=== PATIENT | male | born 1970 | race Caucasian/White ===

== ENCOUNTER 2024-07-11 11:59 | Inpatient (IN) | payer OTHER, MEDICAID, SELFPAY ==
[2024-07-11] VITALS (15 sets, daily range): BP systolic 79–178; BP diastolic 51–95; PULSE 92–127; RESP 12–20; TEMP 36.9–37.1; O2SAT 88–99; BMI 25.0
--- NOTE | 2024-07-11 12:24 | ECG_ITS ---
[facility]: 2024-[facility]11 Pat Name: Black Mayes Department: Room: Gender: Male Cripple Chaser: : 1970 Requested By: Jayy Ospina Order Number: [id number] Denisse MD: Damian Stevens M.D. Measurements Intervals [place] Rate: 109 P: 0 [place]: 0 QRS: 89 QRSD: 106 T: -67 QT: 386 QTc: 520 Interpretive Statements ATRIAL FLUTTER/TACHYCARDIA WITH RAPID VENTRICULAR RESPONSE MODERATE INTRAVENTRICULAR CONDUCTION DELAY [105+ ms QRS DURATION, 80+ ms Q/S IN V1/V2, NO Q AND 60+ ms R IN I/aVL/V5/V6] ST DEVIATION AND MARKED T-WAVE ABNORMALITY, CONSIDER LATERAL ISCHEMIA [-0.5+ mV T-WAVE IN I/aVL/V5/V6] ST DEVIATION AND MODERATE T-WAVE ABNORMALITY, CONSIDER INFERIOR ISCHEMIA [-0.1+ mV T-WAVE IN II/aVF] No previous ECG available for comparison Electronically Signed On 07-12-2024 18:16:25 CDT by Damian Stevens M.D. [email or web address] [id number]
--- NOTE | 2024-07-11 12:39 | XR_ITS ---
WS: [id number] XR chest 1V portable [id number] REASON FOR EXAM: syncope FINDINGS: Mild tortuosity of the thoracic aorta. Normal heart size. Calcified granulomas disease in both hemithoraces. Reticular and patchy lung opacities in the left lower lung. No other pulmonary parenchymal abnormality. No pleural abnormality. Mild to moderate degenerative spondylosis in the thoracic spine. XR/XR chest 1V portable [id number] IMPRESSION: Left lower lung opacities. No previous examination for comparison. Findings cou ld represent acute/subacute pneumonitis.
--- NOTE | 2024-07-11 12:52 | CT_ITS ---
WS: [id number] CT HEAD NONCONTRAST HISTORY: sz and head trauma TECHNIQUE: Contiguous axial imaging performed through the brain. Bone and soft tissue windows. Sagittal and coronal reformats reviewed. All CT scans at [facility] use at least one of these dose optimization techniques: automated exposure control; mA and/or kV adjustment per patient size (includes targeted exams where dose is matched to clinical indication); or iterative reconstruction. DLP: 1082.08 mGy.cm COMPARISON: None available. No acute intracranial hemorrhage, midline shift or mass effect. Mild cerebral and cerebellar atrophy and mild small vessel disease. No acute infarct. No hemorrhage. Ventricles: Normal size with no hydrocephalus. No inferior displacement of the cerebellar tonsils. Paranasal sinuses: Small mucous retention cyst or polyp in the RIGHT maxillary sinus. Mastoid air cells: Well pneumatized. Calvarium and scalp: Skull is intact with no soft tissue edema or swelling. CT/CT head wo con* [id number] IMPRESSION: 1. No acute intracranial hemorrhage or edema. 2. Mild atrophy and small vessel disease.
[2024-07-11 12:53] LABS: Basophils % 0.6 %; Eosinophils % 0.2 %; Hematocrit 30.7 % (37-53); Lymphocytes % 22.2 %; Mean Corpuscular HGB Conc 33.6 g/dL (30-55); Mean Corpuscular Hemoglobin 31.3 pg (27-33); Mean Corpuscular Volume 93.3 fl (82-101); Mean Platelet Volume 10.4 fL (7.4-10.4); Monocytes # 0.5 10^3/uL (0.2-0.9); Monocytes % 10.9 %; Neutrophils # 3.05 10^3/uL (1.8-7.7); Neutrophils % 65.2 %; Nucleated Red Blood Cells % 0 %; Platelet Count 84 10^3/cmm (157-399); Red Blood Count 3.29 10^6/uL (3.85-5.65); Red Cell Distribution Width 15.2 % (12.1-15.1); White Blood Count 4.68 10^3/uL (3.29-11.43)
--- NOTE | 2024-07-11 12:53 | ED_ITS ---
HPI - Syncope 2 General: Chief Complaint: Syncope Stated Complaint: fainting Time Seen by Provider: 07/11/24 12:38 Source: patient and family Mode of arrival: ambulatory Limitations: no limitations History of Present Illness: This patient presents to the emergency department because of concerns about possible passing out episodes and short duration seizures after these events. The initial 1 he relates this morning occurred approximately 2 weeks ago. It was witnessed by family members. He apparently felt lightheaded and sat down in a chair and was noted to be reaching for a cup and then was observed to pass out and become unresponsive. Family members noted that his eyes seem to be darting [id number]. There was no loss of bowel or bladder control noted. They state that after a few seconds he awoken and was back to his normal self. There was no concomitant chest pain or other associated symptoms. He has had episodes where he is felt lightheaded and he would feel like he is going to fall out and he would sit down. He had another episode last night at the toilet where he had a syncopal episode and fell striking his head on the toilet. He has had no recent illness to include nausea vomiting diarrhea fevers chills etc. 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 As a consequence he has increased his alcohol consumption because he has been at home and is drinking fairly heavily most days. He has normal lifestyle included alcohol use on a daily basis but not during the day just after work. He also smokes tobacco and occasionally uses marijuana. No other street drug use. No history of seizure disorder. No known history of cardiovascular disease or arrhythmia. He had a prior ACL repair but no other surgeries. Witnessed: Yes - by Other Context: at rest and after urination Associated symptoms: Reports lightheadedness; Deny abdominal pain, chest pain, fever(s), headache(s) or nausea Related Data Home Medications ?Medication ?Instructions ?Recorded ?Confirmed ketorolac 0.5 % eye drops See Rx Instructions .Route . COMPLEX 07/11/24 07/11/24 moxifloxacin 0.5 % eye drops See Rx Instructions .Rout e .COMPLEX 07/11/24 07/11/24 prednisolone acetate 1 % eye See Rx Instructions .Rout e .COMPLEX 07/11/24 07/11/24 drops,suspension Allergies Allergy/AdvReac Type Severity Reaction Status Date / Time Penicillins Allergy ALGY-Anaphy Verified 07/11/24 12:23 laxis Review of Systems 2 Const: Denies: fever(s) or chills Eyes: Denies: change in vision ENMT: Denies: throat pain, odynophagia, nasal discharge or nasal congestion Card: Reports: lightheadedness, syncope and pre-syncope; Denies: chest pain, palpitations or irregular heart rhythm Resp: Denies: dyspnea, productive cough, non-productive cough or wheezing GI: Denies: abdominal pain, nausea, vomiting, hematochezia or melena : Denies: flank pain, difficulty urinating or dysuria Musc: Denies: neck pain, back pain, extremity pain or extremity swelling Neuro: Reports: dizziness and seizure-like activity; Denies: headache(s), numbness in extremities or weakness in extremities Psych: Denies: anxiety, depression or mood swings Endo: Denies: polyuria, polydipsia or tired all the time Physical Exam 2 Narrative: EXAM NARRATIVE: He is alert but appears a bit anxious. He answers questions in a goal-directed fashion and is cooperative. Const: COMMON NORMALS: no acute distress, average body habitus, patient oriented x3, healthy appearing and alert GENERAL APPEARANCE: cooperative, comfortable and anxious HENMT: COMMON NORMALS: moist oral mucous membranes and oropharynx normal H EAD & SCALP: abrasion; no palpable skull fracture HEAD IMAGES: 1. Abrasion FACE & SINUS: face symmetric Eye: COMMON NORMALS: Equal, round and reactive pupils present, EOMs intact bilaterally, conjunctivae normal and no scleral icterus CONJUNCTIVA: Yes conjunctivae normal PUPIL: Yes Equal, round and reactive pupils present Neck/C-Spine: CERVICAL SPINE: Yes cervical ROM normal, No Cervical spine tenderness, No step off deformity, No Paracervical muscle tenderness, No Paracervical spasm and No Trapezius muscle tenderness OTHER: He is able to actively range his neck in a normal fashion 45 degrees left and right rotation, forward bend and extension 15 degrees. No midline tenderness or step-off. Chest: COMMONS NORMALS: normal inspection of the chest and normal palpation of entire chest wall Resp: COMMON NORMALS: normal respiratory effort, No retractions, No use of accessory muscles and clear to auscultation bilaterally AUSCULTATION: clear to auscultation bilaterally Cardio: COMMON NORMALS: regular rate, No murmurs present (Cardio) and Peripheral pulses 2+ throughout RATE: regular rate PERIPHERAL PULSES: P eripheral pulses 2+ throughout GI: COMMON NORMALS: Normal to inspection, nondistended, normoactive bowel sounds present, Soft to palpation and non-tender PALPATION: Yes Soft to palpation Back/Pelvis: COMMON NORMALS: thoracic and lumbar spine normal to inspection, no thoracic nor lumbar tenderness and thoraco-lumbar ROM normal Extremity: COMMON NORMALS: normal to inspection, full ROM, capillary refill normal, no calf tenderness and no pedal edema Neuro: COMMON NORMALS: patient oriented x3, moves all extremities, no focal motor deficits and no sensory deficits noted SENSORIUM/ORIENTATION: Yes alert Psych: COMMON NORMALS: mental status grossly normal Skin: COMMON NORMALS: no rashes or lesions noted, turgor normal and no jaundice GENERAL SKIN EXAM: no rashes or lesions noted and turgor normal T RAUMA: abrasion Course 2 Reevaluation(s): Reevaluation #1: Patient remains in a rapid ventricular response in the 110 range. His orthostatics are also noted. We are actively orally and IV replacing his magnesium and potassium however because of the significant hypokalemia it is felt best served that he be placed in observation status to complete that process. I discussed this with patient and spouse who voiced understanding. Time: 13:48 Consultations: Consultation #1: Discussed with Dr. Herr who put him in the CSU to continue his repletion of his electrolytes and reevaluation of his rhythm etc. Time: 14:21 Vital Signs: Vital signs: Vital Signs Temperature 98.8 F 07/11/24 12:20 Pulse Rate 108 H 07/11/24 13:48 Respiratory Rate 18 07/11/24 13:48 Blood Pressure 141/84 07/11/24 13:48 Pulse Oximetry 93 07/11/24 13:48 Oxygen Delivery Me thod Room Air 07/11/24 12:20 MDM - Syncope Medical Decision Making This patient presents as noted in the history of present illness. He has history suggest that he may be having presyncope and syncope likely related to a occult arrhythmia however certainly other factors may be at play. Will proceed with workup to include blood count chemistries CT of his head due to his recent fall with closed head trauma cardiac monitoring etc. monitoring reveals a tachycardia which is indeterminate as to etiology potentially atrial flutter versus a other supraventricular rhythm. Has have ST T wave flattening in the lateral leads. Laboratories did reveal that he had a profound hyper Po kalemia of 1.9 mEq/L as well as a concomitant hypomagnesemia. His CT scan revealed no evidence of intracranial bleed or mass effect etc. His chest x-ray was unremarkable for any acute findings. His orthostatic vital signs also noted that he had low blood pressures with postural changes. His presentation is likely related to concomitant systemic and cardiovascular effects of his electrolyte disturbance. This is likely has been brought on by his increased alcohol use as he has no other issues at play to cause electrolyte disturbances to include vomiting diarrhea, diuretic use etc. His initial troponin is reassuring making any concomitant cardiac ischemia less likely at this time. We will begin aggressive oral and IV correction of his electrolyte disturbance but he will need to be placed in observation status in order to allow complete correction and establishment of no ongoing arrhythmias or other orthostatic changes. Lab Data I reviewed the patient's lab results. 07/11/24 12:43 07/11/24 12:43 Radiology Impressions Chest X-Ray 07/11/24 12:39 IMPRESSION: Left lower lung opacities. No previous examination for comparison. Findings could represent acute/subacute pneumonitis. Head CT 07/11/24 12:52 IMPRESSION: 1. No acute intracranial hemorrhage or edema. 2. Mild atrophy and small vessel disease. Laboratory Results WBC 4.68 10^3/uL (3.29-11.43) 07/11/24 12:43 RBC 3.29 10^6/uL (3.85-5.65) L 07/11/24 12:43 Hgb 10.30 g/dL (11.27-16.99) L 07/11/24 12:43 Hct 30.7 % (37-53) L 07/11/24 12:43 MCV 93.3 fl (82-101) 07/11/24 12:43 MCH 31.3 pg (27-33) 07/11/24 12:43 MCHC 33.6 g/dL (30-55) 07/11/24 12:43 RDW 15.2 % (12.1-15.1) H 07/11/24 12:43 Plt Count 84 10^3/cmm (157-399) L 07/11/24 12:43 MPV 10.4 fL (7.4-10.4) 07/11/24 12:43 Neut % (Auto) 65.2 % 07/11/24 12:43 Lymph % (Auto) 22.2 % 07/11/24 12:43 [place] % (Auto) 10.9 % 07/11/24 12:43 Eos % (Auto) 0.2 % 07/11/24 12:43 Baso % (Auto) 0.6 % 07/11/24 12:43 Neut # (Auto) 3.05 10^3/uL (1.8-7.7) 07/11/24 12:43 Lymph # (Auto) 1.0 10^3/uL (0.8-4.8) 07/11/24 12:43 [place] # (Auto) 0.5 10^3/uL (0.2-0.9) 07/11/24 12:43 Eos # (Auto) 0.0 10^3/uL (0.0-0.8) 07/11/24 12:43 Baso # (Auto) 0.0 10^3/uL (0.0-0.1) 07/11/24 12:43 Nucleated RBC % (auto) 0 % 07/11/24 12:43 Nucleated RBCs # 0.0 /100WBC 07/11/24 12:43 Sodium 139 mmol/L (136-145) 07/11/24 12:43 Potassium 1.9 mmol/L (3.5-5.1) L* 07/11/24 12:43 Chloride 80 mmol/L (98-107) L 07/11/24 12:43 Carbon Dioxide 40 mmol/L (22-29) H 07/11/24 12:43 Anion Gap 20.9 (5-19) H 07/11/24 12:43 BUN 5 mg/dL (6-20) L 07/11/24 12:43 Creatinine 0.5 mg/dL (0.7-1.2) L 07/11/24 12:43 GFR Calculation 175.3 mL/min (90-130) H 07/11/24 12:43 Glucose 138 mg/dL (65-115) H 07/11/24 12:43 Calculated Osmolality 287 mOsm/kg (285-295) 07/11/24 12:43 Calcium 8.7 mg/dL (8.5-10.5) 07/11/24 12:43 Magnesium 1.1 mg/dL (1.7-2.3) L 07/11/24 12:43 Total Bilirubin 1.3 mg/dL (0.15-1.2) H 07/11/24 12:43 AST 65 U/L (0-40) H 07/11/24 12:43 ALT 17 U/L (0-41) 07/11/24 12:43 Alkaline Phosphatase 104 U/L (40-130) 07/11/24 12:43 Troponin T Baseline 8 ng/L (0-15) 07/11/24 12:43 Total Protein 7.6 g/dL (6.6-8.7) 07/11/24 12:43 Albumin 4.1 g/dL (3.5-5.2) 07/11/24 12:43 Globulin 3.5 g/dL (1.3-4.6) 07/11/24 12:43 Ethyl Alcohol 135 mg/dL (0-10) H 07/11/24 12:43 All radiology interpretation(s) finalized by discharge EKG Data EKG 1: I personally reviewed and interpreted this EKG as follows: Interpretation: Contemporaneous review of resting EKG reveals a ventricular rate of 109 bpm. No identifiable P wave is noted. QRS duration is normal corrected QT interval is normal he has a leftward axis. Underlying rhythm suggestive of atrial flutter with a rapid ventricular response. EKG 2: I personally reviewed and interpreted this EKG as follows: Interpretation: Second electrocardiogram this visit reveals a ventricular to 106 bpm. Rhythm is indeterminate whether this represents sinus tachycardia 106 bpm or atrial flutter/fibrillation with a rapid ventricular response. He still has ST depressions noted suggestive of possible ischemic changes versus electrolyte disturbance. No other acute changes from prior tracing this visit. Discharge Plan Discharge Patient Disposition: Placed in Observation Clinical Impression: Hypokalemia, Hypomagnesemia, Syncope, Alcohol use disorder Coding Level of Care Code ED Hospitalist Medical Director for Hilda Spears
[2024-07-11 13:15] LABS: Alanine Aminotransferase 17 U/L (0-41); Albumin Level 4.1 g/dL (3.5-5.2); Alkaline Phosphatase 104 U/L (40-130); Anion Gap 20.9 (5-19); Aspartate Amino Transferase 65 U/L (0-40); Blood Urea Nitrogen 5 mg/dL (6-20); Calcium 8.7 mg/dL (8.5-10.5); Carbon Dioxide 40 mmol/L (22-29); Chloride 80 mmol/L (98-107); Creatinine Clr Calc Pharmacy 203.7437; Globulin 3.5 g/dL (1.3-4.6); Glomerular Filtration Rate 175.3 mL/min (90-130); Glucose 138 mg/dL (65-115); Magnesium 1.1 mg/dL (1.7-2.3); Osmolality Calculated 287 mOsm/kg (285-295); Sodium 139 mmol/L (136-145); Total Bilirubin 1.3 mg/dL (0.15-1.2); Total Protein 7.6 g/dL (6.6-8.7); Troponin(5th) Baseline 8 ng/L (0-15)
[2024-07-11 13:17] LABS: Alcohol Level 135 mg/dL (0-10)
[2024-07-11 13:25] LABS: Potassium 1.9 mmol/L (3.5-5.1)
[2024-07-11] MEDS: potassium bicarb 25 mEq Tablet 50 MEQ PO (13:35)
[2024-07-11] MEDS: lactated ringers 1,000 ML 999 ML IV (13:35)
[2024-07-11] MEDS: lidocaine 1% 5 ML in potassium chloride premix 100 ML 52.5 ML IV ×2 (13:46→17:17)
[2024-07-11] MEDS: magnesium sulfate premix 2 GM/50 ML PIGGYBACK IV (14:16)
--- NOTE | 2024-07-11 14:24 | US_ITS ---
WS: [id number] RIGHT UPPER QUADRANT ULTRASOUND HISTORY: assess for cirrhosis COMPARISON: None available. Liver: 18.2 cm in length. Top normal liver to slightly enlarged. Coarse echotexture throughout. The surface of the liver is slightly nodular and irregular. No intrahepatic mass. Portal Vein: Normal hepatopetal flow with monophasic waveform. Gallbladder: Normally distended gallbladder with no stones or wall thickening. CBD: 0.3 cm Pancreas: Not visualized. Right kidney: 11.4 cm in length. Normal size and echogenicity. No hydronephrosis or mass. Aorta and IVC: Unremarkable abdominal aorta and IVC. No ascites. US/US liver [id number] IMPRESSION: 1. Hepatomegaly and changes of early cirrhosis by ultrasound. 2. No hepatic mass. 3. Negative gallbladder.
--- NOTE | 2024-07-11 14:40 | ECG_ITS ---
[facility] Test Date: 2024-07-11 Pat Name: Black Mayes Department: Room: Gender: Male Dynamicist: : 1970 Requested By: Marco A Faulkner Order Number: [id number] Denisse MD: CYNTHIA LUNA Measurements Intervals [place] Rate: 106 P: 83 [place]: 185 QRS: 87 QRSD: 90 T: -86 QT: 348 QTc: 463 Interpretive Statements SINUS TACHYCARDIA WITH OCCASIONAL VENTRICULAR PREMATURE COMPLEXES ST DEVIATION AND MODERATE T-WAVE ABNORMALITY, CONSIDER LATERAL ISCHEMIA [-0.1+ mV T-WAVE IN I/aVL/V5/V6] ST DEVIATION AND MODERATE T-WAVE ABNORMALITY, CONSIDER INFERIOR ISCHEMIA [-0.1+ mV T-WAVE IN II/aVF] INTERPRETATION BASED ON A DEFAULT AGE OF 40 YEARS Compared to ECG 07/11/2024 12:36:04 Ventricular premature complex(es) now present Atrial flutter no longer present Intraventricular conduction delay no longer present T-wave abnormality still present Possible ischemia still present Electronically Signed On 07-13-2024 22:04:24 CDT by CYNTHIA LUNA [id number]
[2024-07-11] MEDS: thiamine 100 mg/mL 2mL SDV IM (14:46)
[2024-07-11 14:54] LABS: INR 0.92 (0.8-1.2)
[2024-07-11 14:57] LABS: Troponin 5 2HR 36.53 ng/L (0-15)
[2024-07-11 15:13] LABS: Iron 103 ug/dL (59-158); Lipase 92 U/L (13-60); Percent Saturation 44.5 % (20-50); Total Iron Binding Capacity 231 mcg/dl; Unsaturated Iron Binding 128 ug/dL (112-347)
[2024-07-11 15:16] LABS: Troponin 5 2HR Delta 28.53 ABS# (0-10)
[2024-07-11 15:17] LABS: Potassium 2.3 mmol/L (3.5-5.1)
[2024-07-11 15:20] LABS: Folate Level 3.9 ng/mL (4.5-32.2)
[2024-07-11 15:29] LABS: Ferritin 1098 ng/mL (30-400)
[2024-07-11 15:30] LABS: Vitamin B12 632 pg/mL (232-1245)
--- NOTE | 2024-07-11 16:00 | P.HP_ITS ---
Providers/Chief Complaint 2 Admitting Physician: Chela Herr MD Chief Complaint: fainting History of Present Illness Black Mayes is a 53 year old male with no known medical comorbidities who is presenting to the hospital with one week of recurrent syncopal episodes at home. He states he was in his usual state of health until 2 weeks ago when he had cataract surgery. Since then he has been having intermittent episodes of dizziness, muscle weakness and has passed out twice at home, most recently yesterday. His was able to awaken him with a strenal rub . no tongue bite, eye rolling or incontinence noted. He recalls feeling dizzy before passing out. Today he was unable to walk so came to the ER. He was noted to have severe hypokalemia of 1.9. he denies any nausea or vomiting. HE has not been diagnosed with any kidney problems in the past. he has never sought preventative care and does not see a physician. Review of Systems 2 General: Reports: 10 or more systems reviewed and unremarkable except in HPI and below Const: Denies: fever(s), chills or body aches Eyes: Denies: change in vision, blurry vision or photophobia ENMT: Reports: hoarseness; Denies: throat pain, enlarged tonsils, odynophagia or nasal congestion Card: Denies: chest pain, palpitations, irregular heart rhythm, edema, swelling of feet/ankles, lightheadedness, pre-syncope, dyspnea on exertion or orthopnea Resp: Denies: dyspnea, productive cough, non-productive cough, wheezing, stridor, pain on inspiration, change in phlegm color, hemoptysis or chest congestion GI: Denies: abdominal pain, nausea, vomiting, hematemesis, coffee ground emesis, dysphagia, heartburn, diarrhea, constipation, GI cramping, change in stool character, hematochezia or melena : Denies: flank pain, dysuria, urinary frequency, urinary urgency, urinary hesitancy or hematuria Musc: Denies: neck pain, back pain, extremity pain, joint swelling, joint warmth or deformity Neuro: Denies: headache(s), numbness in extremities, weakness in extremities, sensory changes, difficulty walking, frequent falls, dizziness, vertigo, behavioral changes, Slurred speech present or seizure-like activity Psych: Denies: anxiety, depression, suicidal ideation or homicidal ideation Endo: Denies: polyuria, polydipsia, tired all the time, cold intolerance or hot flashes Joaquin/Lymph: Denies: easy bruising or easy bleeding Medications/Allergies Home Medications ?Medication ?Instructions ?Recorded ?Confirmed ?Last Taken ?Type ketorolac 0.5 % eye drops See Rx Instructions .Route . COMPLEX 07/11/24 07/11/24 Unknown History moxifloxacin 0.5 % eye drops See Rx Instructions .Rout e .COMPLEX 07/11/24 07/11/24 Unknown History prednisolone acetate 1 % eye See Rx Instructions .Rout e .COMPLEX 07/11/24 07/11/24 Unknown History drops,suspension Allergies Allergy/AdvReac Type Severity Reaction Status Date / Time Penicillins Allergy ALGY-Anaphy Verified 07/11/24 12:23 laxis Vitals/I&O/Wt Last Vital Signs Temp 98.7 F 07/11/24 20:00 Pulse 95 07/11/24 21:05 Resp 12 07/11/24 20:00 BP 140/85 07/11/24 21:05 Pulse Ox 95 07/11/24 20:00 O2 Del Method Nasal Cannula 07/11/24 20:00 O2 Flow Rate 2 07/11/24 20:00 07/11/24 07/11/24 07/11/24 06:59 14:59 22:59 Intake Total 1000 / 1000 740 / 1740 Balance 1000 / 1000 740 / 1740 Weight last 48 hrs Weight 86.183 kg Weight 86.183 kg Physical Exam 2 Narrative: General: No acute distress, AO x3 HEENT: PERRLA, pupils bilaterally equal and reactive, pallors not present Chest: Normal vesicular breath sounds, no added sounds, equal good air entry bilaterally CVS: S1-S2 regular, no murmurs, no tachycardia, no gallops, no rubs Abdomen: Soft, nontender, no organomegaly, bowel sounds present Neuro: No focal deficits, no facial deformity, AO x3, power 5/5 in all limbs Data 07/11/24 12:43 07/11/24 18:06 A&P Assessment and plan (1) Hypokalemia: severe hypokalemia 1.9 no known prior history of the same generalized muscle weakness likely from hypokalemia EKG showing ST-T wave depression , baseline troponin normal, 2 hr trend at 38 with delta 30, monitor 6 hr troponin closely Patient denies any chest pain EKG changes improving with improved K to 2.3 Favor demand ischemia/stress induced from severe hypokalemia check echocardiogram Currently on KCL 60meq via iv at 10 meq/ hr and has received 50 meq po Continue to monitor K every 4 hrs Will admit to CSU with close cardiac monitoring Denies any GI lossess Check urine lytes, UA , TSH and cortisol level , urine creat Check liver US to assess for cirrhosis given thrombocytopenia- suspect liver cirrhosis denies any GI losses or diuretic use (2) Hypomagnesemia: magnesium low at 1.6 replete 2g iv (3) Syncope: likely related to severe hypokalemia (4) Alcohol use disorder: CIWA monitoring for alcohol withdrawal prn ativan per ciwa protocol Plan DVT ppx: SCDs only due to thrombocytopenia Full code PDMP PDMP Reviewed: Not Reviewed Attestations 2 Medical Necessity Statement*: > 2 midnight stay anticipated Coding Level of Care Code Acute Code for Chg Fwd Diagnoses Hypokalemia E87.6 Hypomagnesemia E83.42 Syncope R55 Alcohol use disorder F10.90
--- NOTE | 2024-07-11 16:00 | PC.NURSE ---
unable to administer ASA d/t Pyxis failure at this time
--- NOTE | 2024-07-11 16:44 | PC.NURSE ---
per Dr. Herr to notify lab to have potassium redraws at the ordered time and to draw from pt's opposite arm d/t needing continuous potassium replacement. this nurse notified Dr. Herr of ASA delay d/t Pyxis error; this nurse contacted pharmacy d/t Pyxis drawer error and need for 324mg/x4 ASA tabs. Dr. Herr also requesting pt to be ICU overflow, ED UC contacting [facility] to verify bed availability.
[2024-07-11] MEDS: aspirin 81 mg Chew Tablet 324 MG PO (17:05)
[2024-07-11 18:38] LABS: Troponin 5 6HR 38.68 ng/L (0-15)
[2024-07-11 18:40] LABS: Troponin 5 6HR Delta 30.68 ng/L (0-12)
--- NOTE | 2024-07-11 18:40 | ECG_ITS ---
[facility] Test Date: 2024-07-11 Pat Name: Black Mayes Department: Room: EDIP Gender: Male Gold Marker: : 1970 Requested By: Marco A Faulkner Order Number: [id number] Reading MD: CYNTHAI LUNA Measurements Intervals [place] Rate: 102 P: 60 [place]: 176 QRS: 65 QRSD: 96 T: 213 QT: 338 QTc: 441 Interpretive Statements SINUS TACHYCARDIA ST DEVIATION AND MODERATE T-WAVE ABNORMALITY, CONSIDER INFERIOR ISCHEMIA [-0.1+ mV T-WAVE IN II/aVF] Compared to ECG 07/11/2024 13:57:16 Ventricular premature complex(es) no longer present T-wave abnormality still present Possible ischemia still present Electronically Signed On 07-13-2024 22:04:30 CDT by CYNTHIA LUNA [id number] [id number]
[2024-07-11] MEDS: lidocaine 1% 5 ML in potassium chloride premix 100 ML 26.25 ML IV ×2 (18:47→23:58)
[2024-07-11 18:56] LABS: Potassium 2.1 mmol/L (3.5-5.1)
[2024-07-11 22:56] LABS: Potassium 2.2 mmol/L (3.5-5.1)
[2024-07-11 23:19] LABS: Magnesium 1.5 mg/dL (1.7-2.3); Phosphorus 3.1 mg/dL (2.5-4.5)
[2024-07-11] MEDS: potassium chloride ER 20 mEq Tablet 40 MEQ PO (23:57)
[2024-07-12] VITALS (8 sets, daily range): BP systolic 112–140; BP diastolic 69–92; PULSE 92–109; RESP 12–20; TEMP 36.6–37.2; O2SAT 93–99; BMI 22.9
[2024-07-12] MEDS: magnesium sulfate premix 4 GM/100 ML PREMIX IV (00:15)
[2024-07-12 01:35] LABS: Bilirubin Urine Neg (Negative); Blood Urine 2+ (Negative); Glucose Urine UA Norm (Normal); Ketones Urine Negative (Negative); Leukocyte Esterase Urine Negative (Negative); Nitrate Urine Negative (Negative); Protein Urine Neg (Negative); Urine Appearance Clear (CLEAR); Urine Color Yellow (Yellow); Urobilinogen Urine 8 mg/dL (Negative); pH Urine 9 (5-7)
[2024-07-12 01:39] LABS: Add Urine Microscopic? YES; Bacteria Urine None Seen /hpf; Hyaline Casts Urine 0-4 /lpf; RBC Urine 51-100 /hpf (0-2); Squamous Epithelial Cell Urine 0-5 /hpf (0-5); WBC Urine 0-5 /hpf (0-5)
[2024-07-12 01:47] LABS: Potassium, Radom Urine 18 mmol/L; Urine Creatinine 41 mg/dL (39-259); Urine Random Chloride 60 mmol/L; Urine Random Sodium 157 mmol/L
[2024-07-12 02:33] LABS: Basophils % 0.3 %; Eosinophils % 0.3 %; Hematocrit 25.9 % (37-53); Lymphocytes # 0.9 10^3/uL (0.8-4.8); Mean Corpuscular Hemoglobin 31.7 pg (27-33); Mean Corpuscular Volume 93.2 fl (82-101); Mean Platelet Volume 10.9 fL (7.4-10.4); Monocytes # 0.3 10^3/uL (0.2-0.9); Monocytes % 8.2 %; Neutrophils # 2.56 10^3/uL (1.8-7.7); Neutrophils % 67.7 %; Nucleated Red Blood Cells % 0 %; Platelet Count 65 10^3/cmm (157-399); Red Blood Count 2.78 10^6/uL (3.85-5.65); Red Cell Distribution Width 15.6 % (12.1-15.1); White Blood Count 3.78 10^3/uL (3.29-11.43)
[2024-07-12 02:56] LABS: Alanine Aminotransferase 15 U/L (0-41); Albumin Level 3.8 g/dL (3.5-5.2); Alkaline Phosphatase 102 U/L (40-130); Ammonia 46 umol/L (16-60); Anion Gap 13.3 (5-19); Aspartate Amino Transferase 65 U/L (0-40); Blood Urea Nitrogen 6 mg/dL (6-20); Calcium 8.2 mg/dL (8.5-10.5); Carbon Dioxide 40 mmol/L (22-29); Chloride 85 mmol/L (98-107); Creatinine Clr Calc Pharmacy 254.6797; Glomerular Filtration Rate 226.8 mL/min (90-130); Glucose 121 mg/dL (65-115); Magnesium 2.8 mg/dL (1.7-2.3); Osmolality Calculated 281 mOsm/kg (285-295); Sodium 136 mmol/L (136-145); Total Bilirubin 1.9 mg/dL (0.15-1.2); Total Protein 6.8 g/dL (6.6-8.7)
[2024-07-12 03:01] LABS: Potassium 2.3 mmol/L (3.5-5.1)
[2024-07-12 03:29] LABS: Cortisol Random 14.83 ug/dL (2.47-19.5); Thyroid Stimulating Hormone 1.66 uIU/mL (0.27-4.20)
[2024-07-12] MEDS: lidocaine 1% 5 ML in potassium chloride premix 100 ML 26.25 ML IV ×4 (03:54→23:13)
[2024-07-12] MEDS: potassium chloride ER 20 mEq Tablet 60 MEQ PO (04:59)
[2024-07-12 06:10] LABS: Potassium 2.6 mmol/L (3.5-5.1)
[2024-07-12] MEDS: thiamine 100 mg Tablet PO (08:16)
[2024-07-12] MEDS: pantoprazole DR 40 mg Tablet PO (08:16)
[2024-07-12] MEDS: folic acid 1 mg Tablet PO (08:16)
[2024-07-12] MEDS: multivitamin therapeutic Tablet 1 TAB PO (08:16)
[2024-07-12 11:02] LABS: Potassium 2.4 mmol/L (3.5-5.1)
[2024-07-12] MEDS: nicotine 21 mg Patch 1 PATCH TRANSDERMA (11:52)
--- NOTE | 2024-07-12 12:32 | PM.PN ---
Subjective Subjective: contnues to have hypokalemia in spite of oral and iv supplementation, however stronger with regards to muscle activity. Medications: Reviewed: Yes Vitals/I&O/Wt Last Vital Signs Temp 99.0 F 07/12/24 11:58 Pulse 95 07/12/24 11:58 Resp 12 07/12/24 11:58 BP 140/92 07/12/24 11:58 Pulse Ox 94 07/12/24 11:58 O2 Del Method Room Air 07/12/24 11:58 O2 Flow Rate 2 07/11/24 23:27 07/11/24 07/12/24 07/12/24 22:59 06:59 14:59 Intake Total 740 / 1740 308.25 / 2048.25 465 / 465 Output Total 250 / 250 700 / 950 300 / 300 Balance 490 / 1490 -391.75 / 1098.25 165 / 165 Weight last 48 hrs Weight 78.925 kg Weight 86.183 kg Weight 86.183 kg Physical Exam Narrative: General: No acute distress, AO x3 HEENT: PERRLA, pupils bilaterally equal and reactive, pallors not present Chest: Normal vesicular breath sounds, no added sounds, equal good air entry bilaterally CVS: S1-S2 regular, no murmurs, no tachycardia, no gallops, no rubs Abdomen: Soft, nontender, no organomegaly, bowel sounds present Neuro: No focal deficits, no facial deformity, AO x3 Data 07/12/24 02:13 07/12/24 10:06 A&P Assessment and plan (1) Hypokalemia: severe hypokalemia 1.9 no known prior history of the same generalized muscle weakness likely from hypokalemia EKG showing ST-T wave depression , baseline troponin normal, 2 hr trend at 38 with delta 30, monitor 6 hr troponin closely Patient denies any chest pain EKG changes improving with improved K to 2.3 Favor demand ischemia/stress induced from severe hypokalemia check echocardiogram Currently on KCL 60meq via iv at 10 meq/ hr and has received 50 meq po Continue to monitor K every 4 hrs Will admit to [facility] with close cardiac monitoring Denies any GI lossess Check urine lytes, UA , TSH and cortisol level , urine creat Check liver US to assess for cirrhosis given thrombocytopenia- suspect liver cirrhosis denies any GI losses or diuretic use (2) Hypomagnesemia: magnesium low at 1.6 replete 2g iv (3) Syncope: likely related to severe hypokalemia (4) Alcohol use disorder: [facility] monitoring for alcohol withdrawal prn ativan per [facility] protocol Plan DVT ppx: SCDs only due to thrombocytopenia Full code : Hypokalemic with K at 2.3-2.6 in apite of oral and iv supplementation. Getting iv K 80 meq currently. Add 40meq po kcl q8h. Continue monitoring K every 6 hrs. Muscle strength better compared to yesterday. Ekg changes improving, will repeat today. Urine K/Cr spot ratio at 43 co relating with possible renal K losses. He denies any thiazide use. Denies any GI losses. NO noted ascites. Bicarb at 40, corelating with metabolic alkalosis. Urine pH at 9 ? Gitelman or barrter syndrome. Less likely to be hyperaldosteronism as patient is normotensive with significant orthostatic drops. Holding off on adding spirinolactone for now due to orthostatic drop. PDMP PDMP Reviewed: Not Reviewed Attestations Medical Necessity Statement*: continued need for K supplementation, close monitoring of K levels , suspect renal K losses Coding Level of Care Code Acute Code for Chg Fwd Diagnoses Hypokalemia E87.6 Hypomagnesemia E83.42 Syncope R55 Alcohol use disorder F10.90
[2024-07-12] MEDS: potassium chloride ER 20 mEq Tablet 40 MEQ PO ×3 (12:42→23:13)
--- NOTE | 2024-07-12 13:57 | ECG_ITS ---
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1970 Requested By: Chela Herr Order Number: [id number] Reading MD: CYNTHIA LUNA Measurements Intervals [place] Rate: 96 P: 72 CT: 190 QRS: 58 QRSD: 84 T: 54 QT: 358 QTc: 453 Interpretive Statements SINUS RHYTHM SEPTAL MYOCARDIAL INFARCTION , OF INDETERMINATE AGE [40+ ms Q WAVE IN V1/V2] Compared to ECG 07/11/2024 18:14:19 Myocardial infarct finding now present Sinus tachycardia no longer present T-wave abnormality no longer present Possible ischemia no longer present Electronically Signed On 07-13-2024 22:06:03 CDT by CYNTHIA LUNA [email or web address]
[2024-07-12 15:35] LABS: Potassium 2.9 mmol/L (3.5-5.1)
[2024-07-12] MEDS: acetaminophen 325 mg Tablet 650 MG PO (17:04)
[2024-07-12 22:20] LABS: Potassium 2.8 mmol/L (3.5-5.1)
--- NOTE | 2024-07-12 23:21 | USCV_ITS ---
Black Mayes Age: 53 Gender: M : 1970 Exam Date: 07/12/2024 09:03 Ordering Phys: Chela Herr MD Technologist: Steven Colmenares Exam Location: [facility] [place] Indication: elevated troponins BP: 119 / 69 HR: 94 Rhythm: Sinus Technical Quality: Adequate MEASUREMENTS (Male / Female) Normal Values 2D ECHO LV Diastolic Diameter PLAX 5.0 cm 4.2 - 5.9 / 3.9 - 5.3 cm IVS Diastolic Thickness 0.9 cm 0.6 - 1.0 / 0.6 - 0.9 cm IVS Systolic Thickness 1.2 cm LVPW Diastolic Thickness 1.3 cm 0.6 - 1.0 / 0.6 - 0.9 cm LVPW Systolic Thickness 2.5 cm LVOT Diameter 2.1 cm LV Ejection Fraction 2D Teich 63.3 % LV Ejection Fraction MOD 4C 62.0 % LV Ejection Fraction MOD 2C 68.0 % LV Ejection Fraction 2C AL 68.5 % LA Diameter 3.4 cm Aorta at Sinotubular Diameter 2.5 cm IVC Diameter 1.6 cm M-MODE LA Ao Ratio MM 1.0 AV Cusp Separation MM 2.1 cm DOPPLER AV Peak Velocity 158.0 cm/s LVOT Peak Velocity 120.0 cm/s AV Area Cont Eq vti 2.4 cm squared AV Area Cont Eq pk 2.6 cm squared MV Peak Velocity 95.0 cm/s MV Area PHT 6.2 cm squared Mitral E to A Ratio 0.8 TR Peak Velocity 253.0 cm/s TR Peak Gradient 25.6 mmHg TR Mean Velocity 200.0 cm/s TR Mean Gradient 17.3 mmHg TR Velocity Time Integral 45.3 cm PV Peak Velocity 118.0 cm/s RV Ejection Time 0.2 s FINDINGS Left Ventricle Normal left ventricular size, systolic function and wall thickness, with no regional wall motion abnormalities. Left ventricular ejection fraction is estimated at 60 %. Grade I/IV diastolic dysfunction (abnormal relaxation filling pattern), normal to mildly elevated filling pressures. Right Ventricle The right ventricle is normal in size and function. Right Atrium The right atrium is normal in size. Left Atrium Mildly increased left atrial size. Mitral Valve Mildly thickened mitral valve. Mild mitral annular calcification. No mitral valve stenosis. Mild mitral valve regurgitation. Aortic Valve Mild aortic valve calcification. No aortic valve stenosis. Trace aortic valve regurgitation. Tricuspid Valve Trace tricuspid valve regurgitation. Pulmonic Valve Structurally normal pulmonic valve without significant stenosis. There is no pulmonic regurgitation. Pericardium Normal pericardium without effusion. Aorta Normal ascending aorta dimension. IVC The inferior vena cava appears normal. CONCLUSIONS Normal left ventricular size, systolic function and wall thickness, with no regional wall motion abnormalities. Left ventricular ejection fraction is estimated at 60 %. Grade I/IV diastolic dysfunction (abnormal relaxation filling pattern), normal to mildly elevated filling pressures. Mildly increased left atrial size. Mildly thickened mitral valve. Mild mitral annular calcification. No mitral valve stenosis. Mild mitral valve regurgitation. Mild aortic valve calcification. No aortic valve stenosis. Trace aortic valve regurgitation. There is no pericardial effusion. Right atrial pressure is around 5 mm of mercury. Sae Strickland MD (Electronically Signed) Final Date: 12 July 2024 16:50 S
[2024-07-12] MEDS: trazodone 50 mg Tablet PO (23:23)
[2024-07-13] VITALS (16 sets, daily range): BP systolic 78–131; BP diastolic 60–97; PULSE 94–107; RESP 15–23; TEMP 37.3; O2SAT 92–98
[2024-07-13] MEDS: LORazepam 2 mg Tablet PO (00:48)
[2024-07-13] MEDS: LORazepam 2 mg/mL INJ 1 mL IVP ×2 (02:02→03:00)
[2024-07-13] MEDS: quetiapine 25 mg Tablet 50 MG PO (03:19)
[2024-07-13 03:24] LABS: Potassium 3.3 mmol/L (3.5-5.1)
--- NOTE | 2024-07-13 04:25 | PC.NURSE ---
0306 -Patient received a total of 6 mg, per protocol MD must be notified. Patient is sitting on side of bed hallucinating that he is smoking a cigarette. Patient is wanting to leave and when attempting to stand up is very weak. This nurse and have to assist patient to bed. Patient is getting aggravated and yelling occasionally. Patient educated numerous times regarding why he is at the hospital and the safety issues he is currently presenting. notified regarding the ativan and behavior. Received orders to give 50 mg seroquel once and call back within a hour if medication is ineffective. 0350- Patient is becoming more aggravated, yelling at and reaching out to touch floor. Patient is unsafely sitting on side of bed and leaning. Patient is also attempting to remove side rail as per patient it's my rifle . Patient is becoming more loud and getting physical swatting at wifes hand when she tries to assist and yanking this nurses hand away when we are trying to steady him. Dr. Coe notified and received orders to transfer patient to ICU on precedex gtt. Security at bedside to assist 0405- Report given to Sera BOCANEGRA and patient getting transferred to ICU. Patient reluctant to get into wheelchair and had to be assisted since patient refusing to get back into bed. Patient still refusing to follow directions so he was placed into bed and transferred. Patient did attempt to hit second nurse present but made no contact. Security assisted with transfer of patient. to take belongings home.
[2024-07-13] MEDS: dexmedeTOMIDine 0.9 % NaCL 400 MCG/100 ML PREMIX IV (04:40)
--- NOTE | 2024-07-13 04:53 | PC.NURSE ---
Arrival to ICU 4: Pt arrived to ICU @0403. This RN arrived and took over care at approximately 0410. Continuos cardiac monitoring continued. Potassium restarted, see TANI. Dr. Byrne on unit to see pt, verbal order to start Precedex. Pt is confused, occasionally speaks in works. Short episodes of trashing in bed.
--- NOTE | 2024-07-13 04:57 | PC.NURSE ---
CIWA: AMS preventing accurate CIWA assessment. Pt is unable to answer questions.
[2024-07-13] MEDS: lidocaine 1% 5 ML in potassium chloride premix 100 ML 25 ML IV (06:34)
--- NOTE | 2024-07-13 08:00 | PC.NURSE ---
anxious this am requesting precedex turned off stating that we have gave him too many medications and that is why he is having these problems reviewed at length about lab and potassium ect . medication turned off per request after long explination
[2024-07-13] MEDS: folic acid 1 mg Tablet PO (08:39)
[2024-07-13] MEDS: thiamine 100 mg Tablet PO (08:39)
[2024-07-13] MEDS: pantoprazole DR 40 mg Tablet PO (08:39)
[2024-07-13] MEDS: multivitamin therapeutic Tablet 1 TAB PO (08:39)
[2024-07-13] MEDS: nicotine 21 mg Patch 1 PATCH TRANSDERMA (08:39)
[2024-07-13 09:06] LABS: Potassium 3.2 mmol/L (3.5-5.1)
--- NOTE | 2024-07-13 12:26 | PC.NURSE ---
pt up voiding very unsteady on feet pt and insist on going home talked with Doctor at length still to leave ama iv removed whole and intact and ama paper signed
--- NOTE | 2024-07-13 16:27 | P.DS_ITS ---
Discharge Providers Date of Admission: 07/11/24 15:08 Date of Discharge: July 13, 2024 Attending Provider at Admission: Chela Herr MD Attending Provider at Discharge: Chela Herr MD Diagnoses at Discharge Discharge Diagnosis (1) Hypokalemia: Status: Acute (2) Hypomagnesemia: Status: Acute (3) Syncope: Status: Acute (4) Alcohol use disorder: Status: Acute Reason for Visit Reason for Visit: fainting Hospital Course Hospital Course Black Mayes is a 53 year old male with no known medical comorbidities who is presenting to the hospital with one week of recurrent syncopal episodes at home. He states he was in his usual state of health until 2 weeks ago when he had cataract surgery. Since then he has been having intermittent episodes of dizziness, muscle weakness and has passed out twice at home, most recently yesterday. His was able to awaken him with a strenal rub . no tongue bite, eye rolling or incontinence noted. He recalls feeling dizzy before passing out. Today he was unable to walk so came to the ER. He was noted to have severe hypokalemia of 1.9. he denies any nausea or vomiting. HE has not been diagnosed with any kidney problems in the past. he has never sought preventative care and does not see a physician routinely. EKG showing ST-T wave depression , baseline troponin normal, 2 hr trend at 38 with delta 30. Echo normal. EKG changes resolving with correction of potassium, therefore most likely related to severe electrolyte abnormalities. He was also noted to have hypomagnesemia and metabolic alkalosis. He received IV and oral potassium supplementation. TSH and cortisol level were normal. Patient was normotensive and also had episodes of orthostatic hypotension therefore spironolactone was unable to be added to his regimen.Urine K/Cr spot ratio at 43 co relating with possible renal K losses. He denied any thiazide use or GI losses. NO noted ascites. Urine pH at 9 ? Concern for possible Gitelman or barrter syndrome. Less likely to be hyperaldosteronism as patient is normotensive with significant orthostatic drops. possible periodic hypokalemic paralysis, though no history of the same. Upon admission patient also had an blood alcohol level of 135. He did endorse daily drinking. He was monitored on a CIWA scale and needed to be initiated on Precedex on the night of 4/5-4/6. This morning upon assessment he is awake alert oriented x 3. His muscle strength is improved compared to admission. Patient was recommended to stay in the hospital to enable frequent potassium checks. Though his hypokalemia is improved today at 3.2 which continues to be persistent. We had planned to obtain a renal evaluation today for renal potassium wasting syndromes. However his stated that they would like to leave AMA today. She stated she was unable to take off of work any longer. She is a nurse by occupation and tells us that she will get patient's potassium repeated tomorrow and follow-up with primary care physician closely next week. AMA paperwork was signed and patient left the facility. Physical Exam Narrative: General: No acute distress, AO x3 HEENT: PERRLA, pupils bilaterally equal and reactive, pallors not present Chest: Normal vesicular breath sounds, no added sounds, equal good air entry bilaterally CVS: S1-S2 regular, no murmurs, no tachycardia, no gallops, no rubs Abdomen: Soft, nontender, no organomegaly, bowel sounds present Neuro: No focal deficits, no facial deformity, AO x3, power 5/5 in all limbs Discharge Data Studies Completed and Pending Completed Studies During Hospitalization Category Date Time Status CT head wo con* [id number] Stat Cat Scan 07/11/24 12:52 Completed XR chest 1V portable [id number] Stat Exams 07/11/24 12:39 Completed CV. echo complete* [id number] Routine Ultrasound 07/12/24 23:21 Completed Pending at discharge [place] [id number] Routine Ultrasound 07/11/24 14:24 Taken Radiology Impressions Chest X-Ray 07/11/24 12:39 IMPRESSION: Left lower lung opacities. No previous examination for comparison. Findings could represent acute/subacute pneumonitis. Head CT 07/11/24 12:52 IMPRESSION: 1. No acute intracranial hemorrhage or edema. 2. Mild atrophy and small vessel disease. Laboratory Results WBC 3.78 10^3/uL (3.29-11.43) 07/12/24 02:13 RBC 2.78 10^6/uL (3.85-5.65) L 07/12/24 02:13 Hgb 8.80 g/dL (11.27-16.99) L 07/12/24 02:13 Hct 25.9 % (37-53) L 07/12/24 02:13 MCV 93.2 fl (82-101) 07/12/24 02:13 MCH 31.7 pg (27-33) 07/12/24 02:13 MCHC 34.0 g/dL (30-55) 07/12/24 02:13 RDW 15.6 % (12.1-15.1) H 07/12/24 02:13 Plt Count 65 10^3/cmm (157-399) L 07/12/24 02:13 MPV 10.9 fL (7.4-10.4) H 07/12/24 02:13 Neut % (Auto) 67.7 % 07/12/24 02:13 Lymph % (Auto) 23.0 % 07/12/24 02:13 [place] % (Auto) 8.2 % 07/12/24 02:13 Eos % (Auto) 0.3 % 07/12/24 02:13 Baso % (Auto) 0.3 % 07/12/24 02:13 Neut # (Auto) 2.56 10^3/uL (1.8-7.7) 07/12/24 02:13 Lymph # (Auto) 0.9 10^3/uL (0.8-4.8) 07/12/24 02:13 [place] # (Auto) 0.3 10^3/uL (0.2-0.9) 07/12/24 02:13 Eos # (Auto) 0.0 10^3/uL (0.0-0.8) 07/12/24 02:13 Baso # (Auto) 0.0 10^3/uL (0.0-0.1) 07/12/24 02:13 Nucleated RBC % (auto) 0 % 07/12/24 02:13 Nucleated RBCs # 0.0 /100WBC 07/12/24 02:13 PT 13.00 SECONDS (12.1-14.9) 07/11/24 12:43 INR 0.92 (0.8-1.2) 07/11/24 12:43 Sodium 136 mmol/L (136-145) 07/12/24 02:13 Potassium 3.2 mmol/L (3.5-5.1) L 07/13/24 08:44 Chloride 85 mmol/L (98-107) L 07/12/24 02:13 Carbon Dioxide 40 mmol/L (22-29) H 07/12/24 02:13 Anion Gap 13.3 (5-19) 07/12/24 02:13 BUN 6 mg/dL (6-20) 07/12/24 02:13 Creatinine 0.4 mg/dL (0.7-1.2) L 07/12/24 02:13 GFR Calculation 226.8 mL/min (90-130) H 07/12/24 02:13 Glucose 121 mg/dL (65-115) H 07/12/24 02:13 Calculated Osmolality 281 mOsm/kg (285-295) L 07/12/24 02:13 Calcium 8.2 mg/dL (8.5-10.5) L 07/12/24 02:13 Phosphorus 3.1 mg/dL (2.5-4.5) 07/11/24 22:10 Magnesium 2.8 mg/dL (1.7-2.3) H 07/12/24 02:13 Iron 103 ug/dL (59-158) 07/11/24 14:24 TIBC 231 mcg/dl 07/11/24 14:24 % Saturation 44.5 % (20-50) 07/11/24 14:24 Unsat Iron Binding 128 ug/dL (112-347) 07/11/24 14:24 Ferritin 1098 ng/mL (30-400) H 07/11/24 14:24 Total Bilirubin 1.9 mg/dL (0.15-1.2) H 07/12/24 02:13 AST 65 U/L (0-40) H 07/12/24 02:13 ALT 15 U/L (0-41) 07/12/24 02:13 Alkaline Phosphatase 102 U/L (40-130) 07/12/24 02:13 Ammonia 46 umol/L (16-60) 07/12/24 02:13 Troponin T Baseline 8 ng/L (0-15) 07/11/24 12:43 Troponin T 120 Minute 36.53 ng/L (0-15) H 07/11/24 14:29 Delta Troponin T 28.53 ABS# (0-10) H* 07/11/24 14:29 Troponin T Hi Sens 6Hr 38.68 ng/L (0-15) H 07/11/24 18:06 Troponin T Hi Sens 6Hr Delta 30.68 ng/L (0-12) H* 07/11/24 18:06 Total Protein 6.8 g/dL (6.6-8.7) 07/12/24 02:13 Albumin 3.8 g/dL (3.5-5.2) 07/12/24 02:13 Globulin 3.0 g/dL (1.3-4.6) 07/12/24 02:13 Lipase 92 U/L (13-60) H 07/11/24 14:24 Vitamin B12 632 pg/mL (232-1245) 07/11/24 14:24 Folate 3.9 ng/mL (4.5-32.2) L 07/11/24 12:43 TSH 1.66 uIU/mL (0.27-4.20) 07/12/24 02:13 Random Cortisol 14.83 ug/dL (2.47-19.5) 07/12/24 02:13 Urine Color Yellow (Yellow) 07/12/24 01:10 Urine Appearance Clear (CLEAR) 07/12/24 01:10 Urine pH 9 (5-7) A 07/12/24 01:10 Ur Specific Joseph 1.010 (1.005-1.030) 07/12/24 01:10 Urine Protein Neg (Negative) 07/12/24 01:10 Urine Glucose (UA) Norm (Normal) 07/12/24 01:10 Urine Ketones Negative (Negative) 07/12/24 01:10 Urine Blood 2+ (Negative) H 07/12/24 01:10 Urine Nitrate Negative (Negative) 07/12/24 01:10 Urine Bilirubin Neg (Negative) 07/12/24 01:10 Urine Urobilinogen 8 mg/dL (Negative) H 07/12/24 01:10 Ur Leukocyte Esterase Negative (Negative) 07/12/24 01:10 Urine RBC 51-100 /hpf (0-2) H 07/12/24 01:10 Urine WBC 0-5 /hpf (0-5) 07/12/24 01:10 Ur Squamous Epith Cells 0-5 /hpf (0-5) 07/12/24 01:10 Amorphous Sediment Not Reportable 07/12/24 01:10 Urine Bacteria None seen /hpf (NONE) 07/12/24 01:10 Hyaline Casts 0-4 /lpf H 07/12/24 01:10 Ur Random Sodium 157 mmol/L 07/12/24 01:10 Ur Random Potassium 18 mmol/L 07/12/24 01:10 Ur Random Chloride 60 mmol/L 07/12/24 01:10 Urine Creatinine 41 mg/dL (39-259) 07/12/24 01:10 Ethyl Alcohol 135 mg/dL (0-10) H 07/11/24 12:43 Vitals Last Vital Signs Temp 99.1 F 07/13/24 09:30 Pulse 102 H 07/13/24 10:30 Resp 15 07/13/24 10:30 BP 128/97 07/13/24 10:30 Pulse Ox 96 07/13/24 10:30 O2 Del Method Room Air 07/13/24 06:00 O2 Flow Rate 2 07/11/24 23:27 Discharge Plan Discharge Patient Disposition: Left Against Medical Advice Condition: Stable Prescriptions: New potassium chloride [K-Tab] 20 mEq tablet extended release 20 meq PO BID 3 Days Qty: 6 0RF No Action ketorolac 0.5 % drops See Rx Instructions .ROUTE .COMPLEX Rx Instructions: STARTING 2 DAYS prior TO surgery instill 1 drop into operative eye THREE TIMES DAILY. THEN DIRECTED post operatively. prednisolone acetate 1 % drops,suspension See Rx Instructions .ROUTE .COMPLEX Rx Instructions: AFTER SURGERY Instill 1 drop into operative eye FOUR TIMES DAILY FOR 7 DAYS; THEN INSTILL 1 DROP TWICE DAILY FOR 28 DAYS. moxifloxacin 0.5 % drops See Rx Instructions .ROUTE .COMPLEX Rx Instructions: Instill 1 drop 3 times every day into operative eye starting 2 days prior to surgery & One drop on day of surgery. Discharge Attestations Time Spent in Discharge Care*: greater than 30 min Quality Metrics Clinical Quality Measures [ No reported AMI, CVA or VTE this stay] Coding Level of Care Code Acute Code for Chg Fwd Diagnoses Hypokalemia E87.6 Hypomagnesemia E83.42 Syncope R55 Alcohol use disorder F10.90
== END 2024-07-13 12:30 | disposition home or self-care (01) | DRG 641 ==
LOC: ER 13:49 → ER IP 15:08 → CSU 19:58 → ICU 07-13 04:00
PROVIDERS: Internal Medicine; Admitting Provider Student in an Organized Health Care Education/Training Program; Emergency Provider Emergency Medicine; Visit Provider Student in an Organized Health Care Education/Training Program
DX: E87.6 Hypokalemia (principal); E83.42 Hypomagnesemia; R55 Syncope and collapse; Z53.29 Procedure and treatment not carried out because of patient's decision for other reasons
CPT/HCPCS: 36415; 70450; 71045; 76705; 80053; 80307; 81001; 82140; 82436; 82533; 82570; 82607; 82728; 82746; 83540; 83550; 83690; 83735; 84100; 84132; 84133; 84300; 84443; 84484; 85025; 85610; 93005; 93306; 96365; 96366; 96367; 96372; 96375; 97161; 99285; J2060; J3411; J3475; J3480; J7120; J9999